=== PATIENT | female | born 1990 | race Two or more races ===

== ENCOUNTER 2024-11-07 14:49 | Outpatient (AMB) | payer MEDICAID, SELFPAY ==
[2024-11-07 15:10] VITALS: BP 120/83; PULSE 88; RESP 16; TEMP 36.2; O2SAT 98; BMI 34.4
--- NOTE | 2024-11-07 15:10 | AMB.OBINITIA ---
Vital Signs 11/07/24 15:10 Height 1.52 m Height Method Stated Weight 80.002 kg Weight Measurement Method Standing Scale BMI 34.4 BP 120/83 Blood Pressure Source Automatic Cuff Blood Pressure Location Left Upper Arm Position Sitting Respiration 16 Pulse 88 Pulse Source Monitor Temp 97.2 F Temp Source Oral Pulse Oximetry (%) 98 Oxygen Delivery Method Room Air Allergies/Home Meds Allergies & Medications Allergies No Known Allergies Allergy (Verified 11/07/24 15:11) Medication Reconciliation docusate sodium 100 mg capsule (Colace) 100 mg PO BID #60 caps 01/27/23 [Rx Confirmed 11/07/24] ibuprofen 800 mg tablet 800 mg PO Q6H PRN pain #120 tabs 01/27/23 [Rx Confirmed 11/07/24] lanolin 50 % topical ointment 1 applic topical TID PRN skin irritation #15 tubes 01/27/23 [Rx Confirmed 11/07/24] labetalol 200 mg tablet 200 mg PO BID #60 tabs 01/28/23 [Rx Confirmed 11/07/24] amoxicillin 500 mg capsule 500 mg PO TID 7 days #21 caps 11/07/24 [Rx] Intake Visit Data Collection New Patient or Established: Established Patient (seen at [facility] within 3 years) Reason for Visit:: OBC Seen by Clinical Staff ONLY (RN/MA): No Psych Therapist Required: No Do You Feel Safe at Home: Yes Authorities Contacted: N/A PCP or OBGYN visit in last 3 months: Yes Hx Now: Yes Are you currently on any form of Control: No Last menstrual period: 07/28/24 Pain Present Currently: No Pain Scale Used: Mendoza-Patel/Numerical Pain scale:: 0 Smoking Status Smoking Status: Never smoker Questionnaires Covid-19 Vaccine Questionnaire Has patient been vacinated for Covid-19 Have you been vacinated for Covid-19: No PHQ-9 PHQ-2 Over the last 2 weeks, how often have you been bothered by any of the following problems? 1. Little interest or pleasure in doing things: not at all 2. Feeling down, depressed, or hopeless: not at all Total score: 0 PHQ-9 3. Trouble falling or staying asleep, or sleeping too much: Not at all 4. Feeling tired or having little energy: Not at all 5. Poor appetite or overeating: Not at all 6. Feeling bad about yourself - or that you are a failure or have let yourself or your family down: Not at all 7. Trouble concentrating on things, such as reading the newspaper or watching television: Not at all 8. Moving or speaking so slowly that other people could have noticed? - Or the opposite - being so fidgety or restless that you have been moving around a lot more than usual: not at all 9. Thoughts that you would be better off or of hurting yourself in some way: Not at all Total score: 0 If you checked off any problems, how difficult have these problems made it for you to do your work, take care of things at home, or get along with other people?: not difficult at all Source: Developed by Drs. Armin Lam, Vibha Mora, César Whitney and colleagues, with an educational liliana from [employer]. Depression screen completed yes Social History Living Situation History Marital Status: Lives With: Family Housing: House Tobacco History Smoking Status: Never smoker Second Hand Smoke Exposure: No Alcohol History Alcohol Intake: Never Domestic Abuse History Do You Feel Safe at Home: Yes History of Present Illness HPI Narrative Tatum Botello, a 4 para 3, presents for her initial visit at 14 weeks and 4 days gestation based on her last menstrual period of July 28, 2024. Her obstetrical history is significant for preeclampsia in her first and gestational diabetes as well as hypertension in her third . All previous deliveries were vaginal. The patient reports mild nausea associated with her current . She denies any severe symptoms at this time. Tatum also mentions noticing a lump in her vaginal area approximately 4 days ago while cleaning herself. She describes it as a grub that she can feel but cannot see. The patient denies any pain, throbbing sensation, or discharge associated with this lump. This is a new finding for her and has not occurred in previous pregnancies. Regarding her last , Tatum reports that she was induced approximately 20 days early due to the baby measuring larger than expected. Her due date had been February 16, but she delivered around 37 weeks gestation. 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 Medical History: - Gestational diabetes in third - Hypertension in third - Preeclampsia in first Surgical History: - 3 previous vaginal deliveries Obstetric History: - GTPAL: L3 - Current : Gestational age 14 weeks and 4 days by last menstrual period, estimated due date May 04, 2025 - Third : Vaginal delivery, complicated by gestational diabetes and hypertension - Second : Vaginal delivery, no reported complications - First : Vaginal delivery, complicated by preeclampsia Social History: - Works night shifts [employer]: Past Medical History Past Medical History: No Hx Neurological Disorders, No Hx Breast Cancer, Yes Hx Cardiac Disorders, Yes Hx Hypertension (PIH), No Hx Cancer, No Hx Blood Disorders, Yes Hx Anemia, Yes Hx Gastrointestinal Disorders, No Hx Renal Disease, No Hx Diabetes Mellitus Type 1, No Hx Diabetes Mellitus Type 2, No Hx Tubal Ligation and No Hx Hysterectomy OB Initial Visit Menstrual History Menstrual reliability: definite Flow: normal Menstrual regularity: regular Monthly: Yes Age at menarche: 16 On control pills at conception: No OB History : 4 Para: 3 Hx # Pregnancies: 0 Hx Total # of Abortions (Spontaneous & Elective): 0 # of Living Children: 3 Delivery History 1st : Child's name: NOT PROVIDED date: 03/30/17 sex: male Delivery type: vaginal Delivery complications: PRECLAMPSIA History of depression before or after : No 2nd : Child's name: NOT PROVIDED date: 10/02/19 sex: female Delivery type: vaginal Delivery complications: GESTATIONAL DIABETES History of depression before or after : No 3rd : Child's name: NOT PROVIDED date: 02/06/23 sex: female Delivery type: vaginal Delivery complications: PRECLAMPSIA, GESTATIONAL DIABETES , HYPERTENSION Infection History & Risk Evaluation History of STDs: none HIV risk evaluation: low risk Hepatitis B risk evaluation: low risk Patient or partner has history of Genital Herpes: No Varicella/chicken pox status: immunized Genetic Screening & History Genetic Screening/Teratology Counseling - Includes patient, baby's father, or anyone in either family with: 1. Patient's age 35 years or older as of estimated date of delivery: No 2. Thalassemia (Setswana, Peruvian, Mediterranean, or Background); MCV less than 80: No 3. Neural Tube Defect (Meningomyelocele, Spina Bifida, or Anencephaly): No 4. Congenital Heart Defect: No 5. Down Syndrome: No 6. Henry-Sachs (Ashkenazi Alevism, Cajun, Omani Hong Konger): No 7. Jordyn Disease (Ashkenazi Alevism): No 8. Familial Dysautonomia (Ashkenazi Alevism): No 9. Sickle Cell Disease or Trait (): No 10. Hemophilia or other blood disorders: No 11. Muscular Dystrophy: No 12. Cystic Fibrosis: No 13. Swift's Chorea: No 14. Mental Retardation/Autism: Yes 15. Other inherited genetic or chromosomal disorder: No 16. Maternal Metabolic Disorder (EG,TYPE 1 Diabetes, PKU): No 17. Patient or baby's father had a child with defects not listed above: No 18. Recurrent loss or a stillbirth: No 19. Medications (including supplements, vitamins, herbs or otc drugs)/illicit/recreational drugs/alcohol since last menstrual period: No 20. Any other: No Infection History 1. Live with someone with TB or exposed to TB: No 2. Rash or viral illness since last menstrual period: No 3. Hepatitis B,C: No Other (see comments) Source: [employer] Exam Narrative Physical exam: - Genitourinary: Patient reports a lump in the vaginal area. Upon examination, a Bartholin's cyst is noted. General Limitations: no limitations General Appearance: alert, in no apparent distress and comfortable Head Head exam: atraumatic and normocephalic Eye Eye exam: Present normal appearance, PERRL and EOMI Neck Neck exam: Present normal inspection and full ROM Chest Chest inspection: Present normal inspection and symmetric chest wall rise; Absent tenderness Resp Respiratory exam: Present normal lung sounds bilaterally; Absent respiratory distress Card Cardiovascular exam: Present regular rate and normal rhythm Abdominal Abdominal exam: Present soft and normal bowel sounds; Absent tenderness, guarding, rebound or rigidity Neuro Neurological exam: Present alert and oriented X3 Psych Psychiatric exam: Present normal affect Office Procedures OB Clinic LOC & Office Proc's Nursing/Assessment Patient Status: Established Patient OB Clinic Nursing Assessment: Medication Reconciliation, Update PMH in EMR and Vital Signs OB Clinic Coordination of Care: Education Complex Pt/Fam, Consent,records obtained, informed consent, Lab and Imaging orders, Results/Orders obtained and Staff clarify orders Special Needs: Heart tones Established Patient Charge Established Patient Point Assignment: 115 Established Patient Point Charge: EP Level 3 (80-115) Assessment & Plan Diagnosis / Problem List (1) Supervision of high risk , unspecified, first trimester: Status: Acute (2) Uterine size date discrepancy: Status: Acute (3) Bartholin's cyst: Status: Acute Plan Intrauterine Assessment: Patient reports last menstrual period on 07/28/2024, consistent with 14 weeks 4 days gestation and estimated due date of 05/04/2025. Bedside ultrasound performed today shows measurements between 11 weeks 5 days and 13 weeks, with normal heart rate of 158 bpm. movement observed. Discrepancy in dates noted, formal ultrasound needed for accurate dating. Plan: - Order formal ultrasound in radiology department for accurate dating and measurements - Maintain estimated due date based on last menstrual period (05/04/2025) pending formal ultrasound results - Order initial OB panel and genetic testing - Order 1-hour glucose tolerance test (due to history of gestational diabetes) - Follow-up after test results are available History of gestational diabetes Assessment: Patient has a history of gestational diabetes in previous pregnancies, increasing her risk for recurrence in current . Early screening is indicated. Plan: - Order 1-hour glucose tolerance test as part of initial lab work - Educate patient on importance of early screening and management of gestational diabetes - Follow-up to review results and determine need for further testing or management History of preeclampsia and gestational hypertension Assessment: Patient has a history of preeclampsia in her first and gestational hypertension in her third , increasing her risk for recurrence in current . Close monitoring is warranted. Plan: - Include blood pressure monitoring in routine visits - Educate patient on signs and symptoms of preeclampsia to report - Consider low-dose aspirin for preeclampsia prevention (to be discussed at follow-up visit) Vaginal lump Assessment: Patient reports noticing a lump in the vaginal area 4 days ago. Denies pain, throbbing, or discharge. Physical examination pending. Plan: - Perform pelvic examination to assess reported vaginal lump - Provide patient education and reassurance based on examination findings - Determine need for further evaluation or treatment based on examination results Family planning Assessment: Patient expresses interest in permanent contraception. Discussion of tubal ligation options provided, including possibility of laparoscopic tubal ligation. Plan: - Educate patient on laparoscopic tubal ligation procedure - Discuss risks, benefits, and alternatives of tubal ligation - Plan for further discussion and decision-making at subsequent visits - If patient decides to proceed, schedule tubal ligation approximately 6 weeks after delivery Mild nausea Assessment: Patient reports mild nausea associated with . Plan: - Educate on dietary and lifestyle modifications to manage nausea - Instruct patient to call if nausea worsens - Offer prescription for Zofran if needed in the future
== END 2024-11-07 16:05 | disposition home or self-care (01) ==
LOC: HODSOBC 14:49
PROVIDERS: Supervising Provider Obstetrics & Gynecology; Visit Provider Obstetrics & Gynecology
DX: O09.891 Supervision of other high risk pregnancies, first trimester (principal); O26.841 Uterine size-date discrepancy, first trimester; O99.891 Other specified diseases and conditions complicating pregnancy; N75.0 Cyst of Bartholin's gland; R11.0 Nausea; O09.291 Supervision of pregnancy with other poor reproductive or obstetric history, first trimester; Z3A.11 11 weeks gestation of pregnancy; Z86.32 Personal history of gestational diabetes; Z87.59 Personal history of other complications of pregnancy, childbirth and the puerperium
CPT/HCPCS: 99213; G0463

== ENCOUNTER → 2024-11-12 | Outpatient (CLI) | payer MEDICAID, SELFPAY ==
--- NOTE | 2024-11-12 13:27 | XR_ITS ---
Examination: Transvaginal ultrasound of the pelvis, complete Technique: Transvaginal sonographic images pelvis performed using long scale imaging Exam date and time: November 12, 2024 1416 hours INDICATIONS: Size dates discrepancy FINDINGS: Uterus 14.5 cm CRL 6.3 cm corresponds to 12 weeks 5 day gestational age Cardiac motion 162 BPM Right ovary obscured by bowel gas Left ovary 3.2 cm arterial flow IMPRESSION: Viable intrauterine gestation 12 weeks 5 days.
--- NOTE | 2024-11-12 13:27 | XR_ITS ---
Examination: Complete OB ultrasound, less than 14 weeks, transabdominal Date and time of exam: November 12, 2024 1406 hours INDICATIONS: Size dates discrepancy Technique: Obstetrical ultrasound images less than 14 weeks performed via transabdominal imaging Findings: A normal shaped single intrauterine gestation is present in the uterus. pole 6.9 cm corresponds to 13 weeks 1 day gestational age Cardiac motion 155 BPM Ultrasonographic survey of visible and placental structures unremarkable. Amniotic fluid volume appears appropriate for this estimated gestational age. Right ovary 3.6 cm arterial flow 18 mm cyst Left ovary obscured by bowel gas IMPRESSION: Viable intrauterine gestation 13 weeks 1 day.
== END | disposition home or self-care (01) ==
PROVIDERS: Referring Provider Obstetrics & Gynecology; Visit Provider Obstetrics & Gynecology
DX: O26.849 Uterine size-date discrepancy, unspecified trimester (principal); O09.91 Supervision of high risk pregnancy, unspecified, first trimester; Z3A.13 13 weeks gestation of pregnancy
CPT/HCPCS: 76801; 76830

== ENCOUNTER 2024-11-20 19:20 | Emergency (ER) | payer MEDICAID, SELFPAY ==
[2024-11-20 19:21] VITALS: BMI 34.3
[2024-11-20 19:40] VITALS: BP 117/79; PULSE 87; RESP 18; TEMP 37; O2SAT 99
--- NOTE | 2024-11-20 19:47 | EDRME_ITS ---
Rapid Medical Screening Exam [facility] Arrival date/time: 11/20/24 19:20 34F with history of gestational HTN at approximately 16 weeks presents to ED with 2 days of LEE and LUQ pain. Chief Complaint: Headache Vital signs: Vital Signs Temperature 98.6 F 11/20/24 19:40 Pulse Rate 87 11/20/24 19:40 Respiratory Rate 18 11/20/24 19:40 Blood Pressure 117/79 11/20/24 19:40 Pulse Oximetry (%) 99 11/20/24 19:40 Oxygen Delivery Method Room Air 11/20/24 19:40
[2024-11-20 20:11] LABS: Basophils # (Auto) 0.0 Thou/mm3 (0.0-0.2); Basophils % (Auto) 0 % (0-2.5); Eosinophils # (Auto) 0.2 Thou/mm3 (0.0-0.5); Eosinophils % (Auto) 2 % (0-10); Hematocrit 36.5 % (36.0-46.0); Hemoglobin 12.2 g/dL (12.0-16.0); Immature Granulocytes Auto 0.06 Thou/mm3 (0.00-0.00); Lymphocytes # (Auto) 1.4 Thou/mm3 (1.0-4.8); Lymphocytes % (Auto) 18 % (10-50); Mean Corpuscular HGB Conc 33.4 g/dl (31.0-37.0); Mean Corpuscular Hemoglobin 28.5 pg (25.0-35.0); Mean Corpuscular Volume 85 fL (80-100); Monocytes # (Auto) 0.8 Thou/mm3 (0.0-0.8); Monocytes % (Auto) 10 % (0-12); Neutrophils # (Auto) 5.6 Thou/mm3 (1.8-7.7); Neutrophils % (Auto) 69 % (37-80); Nucleated Red Blood Cell # 0.00 Thou/mm3 (0.00-0.00); Nucleated Red Blood Cell % 0 /100 WBC (0); Platelet Count 213 Thou/mm3 (140-440); RDW Standard Deviation 39.7 fL (36.4-46.3); Red Blood Count 4.28 Miln/mm3 (4.00-5.20); White Blood Count 8.1 Thou/mm3 (3.6-11.0)
[2024-11-20] MEDS: ACETAMINOPHEN 500 MG TABLET PO (20:17)
[2024-11-20 20:26] LABS: Collection Type, Urine Clean Catch
[2024-11-20 20:33] LABS: Alanine Aminotransferase 20 U/L (10-49); Albumin, Serum 4.2 gm/dL (3.5-5.0); Albumin/Globulin Ratio 1.8 (1.2-2.2); Alkaline Phosphatase 81 U/L (46-116); Anion Gap 9 (7-16); Aspartate Amino Transferase 23 U/L (0-34); BUN/Creatinine Ratio 9 Ratio (12-20); Bilirubin,Total 0.3 mg/dL (0.3-1.2); Blood Urea Nitrogen 6 mg/dL (9-23); Calcium 9.2 mg/dL (8.3-10.6); Calcium (Corrected) 9.2 mg/dL (8.5-10.1); Carbon Dioxide 24.8 mMol/L (20.0-31.0); Chloride 105 mMol/L (98-107); Creatinine (Component) 0.7 mg/dL (0.6-1.3); Estimated Creatinine Clearance 105.9 mL/min (>60); Globulin 2.4 gm/dL (2.3-3.5); Glucose 118 mg/dL (74-106); Osmolality,Calculated 276 (275-295); Potassium 3.3 mMol/L (3.4-5.1); Sodium 139 mMol/L (136-145); Total Protein 6.6 gm/dL (5.7-8.2); eGFR > 60 See Note
[2024-11-20 20:42] LABS: Amorphous Crystals,Urine Present (Absent); Bacteria,Urine 1+; Bilirubin,Urine Negative (Negative); Blood,Urine Negative (Negative); Clarity,Urine Turbid (Clear/Hazy); Color,Urine Colorless (Lt Yel-Yel); Culture Indicated,Urine Contaminated; Glucose, Urine Negative (Negative); Ketones,Urine Negative (Negative); Leukocyte Esterase,Urine Negative (Negative); Nitrite,Urine Negative (Negative); PH,Urine 7.0 (5.0-7.0); Protein,Urine Trace (Neg - Trace); RBC,Urine 2 /hpf (0-3); Specific Gravity,Urine 1.021 (1.001-1.035); Squamous Epithelial Cell,Urine 14 /hpf (0-5); Urobilinogen,Urine Negative mg/dL (0.0-1.0); WBC,Urine 2 /hpf (0-5)
[2024-11-20 22:21] VITALS: BP 115/68; PULSE 83; RESP 19; TEMP 37.6; O2SAT 96
--- NOTE | 2024-11-20 22:28 | EDNOTE_ITS ---
ED Headache RME/HPI General Chief Complaint: Headache Stated Complaint: HEADACHE X2 DAYS, LEFT UPPER ABD PAIN, 16 WKS PREG Time Seen by Provider: 11/20/24 20:56 Arrival date/time: 11/20/24 19:20 Limitations: no limitations RME / HPI RME / HPI Narrative: 11/20/24 19:20 34F with history of gestational HTN at approximately 16 weeks presents to ED with 2 days of LEE and LUQ pain. --------- Dr. Morales's Main ED Evaluation: 34yo female with a history of gestational HTN who is ~16 weeks gestation presents to the ED for a chief complaint of a generalized headache since yesterday. Patient describes her pain as throbbing and pressure in nature, rating her pain a 6 out of 10 in severity. Patient has been taking Tylenol with mild improvement. Her headache feels similar to when s he was diagnosed with gestational HTN during her last . Patient denies any N/V, abdominal pain, vaginal bleeding, cough, runny nose, or any other associated symptoms. NKA. Related Data Previous Rx's ?Medication ?Instructions ?Recorded docusate sodium 100 mg capsule 100 mg PO BID #60 caps 01/27/23 (Colace) ibuprofen 800 mg tablet 800 mg PO Q6H PRN pain #120 tabs 01/27/23 lanolin 50 % topical ointment 1 applic topical TID PRN skin 01/27/23 irritation #15 tubes labetalol 200 mg tablet 200 mg PO BID #60 tabs 01/28 Allergies Allergy/AdvReac Type Severity Reaction Status Date / Time No Known Allergies Allergy Verified 11/07/24 15:11 Review of Systems Review of Systems Systems Reviewed: All systems reviewed, normal except as documented Past Medical History Past Medical History NEUROLOGIC: Negative Neurological Disorders CARDIAC: Positive Cardiac Disorders and Hypertension (PIH); Negative Congestive Heart Failure RESPIRATORY: Positive Asthma and Bronchitis; Negative Chronic Obstructive Pulmonary Disease (COPD) GASTROINTESTINAL: Positive Gastrointestinal Disorders and Obesity; Negative Hepatitis or Colorectal Cancer GENITOURINARY: Positive Genitourinary Disorders (hx uti); Negative Renal Disease or Prostate Cancer REPRODUCTIVE: Positive Previous Pregnancies; Negative Breast Cancer, Endometriosis, Genital Herpes, Gonorrhea, Pelvic Inflammatory Disease, Syphilis, Testicular Cancer or Uterine Prolapse MUSCULOSKELETAL: Negative Musculoskeletal Disorders, Bone Cancer or Carpal Tunnel Syndrome ENT: Negative Cataracts ENDOCRINE: Positive Endocrine Disorders; Negative Diabetes Mellitus Type 1 or Diabetes Mellitus Type 2 HEMATOLOGIC: Positive Anemia; Negative Blood Disorders PSYCHO/SOCIAL: Positive Depression, Anxiety and Depression OTHER HISTORY: Negative Hospitalization, Autoimmune Disease, Down Syndrome, Developmental Delay, Shingles, Falls, Blood Transfusions, Blood Transfusion Reaction, Anesthesia Reactions, Organ Transplant, Chemotherapy, Radiation Therapy, Hyperbaric Therapy, MRSA, VRSA, Vancomycin-Resistant Enterococci, Human Immunodeficiency Virus (HIV), Chicken Pox, Measles, Mumps, Rubella (Grenadian Measles), Pertussis, Clostridium Difficile, Cancer, Breast Cancer, Cervical Cancer, Colorectal Cancer, Lung Cancer, Ovarian Cancer, Prostate Cancer or Testicular Cancer Family History FAMILY HISTORY: Positive Family Respiratory Disorders (mother-asthma) and Family Gastrointestinal Problems (mother-gallbladder); Negative Family Psychiatric Problems, Family Cardiac Disorders, Family Cancer, Family Surgery or Family Anesthesia Reaction Surgical History SURGICAL: Negative Endocrine Surgery, Thyroidectomy, Ear Surgery, Tympanostomy Tube, Eye Surgery, Nose Surgery, Oral Surgery, Tonsillectomy, Adenoidectomy, Cochlear Implant, Corneal Transplant, Throat Surgery, Abdominal Surgery, Tracheostomy, Gastric Bypass Surgery, Gastrostomy, Bowel Surgery, Nephrectomy, Transurethral Resection, Joint Replacement, Amputation, Open Reduction Internal Fixation, Arthroscopy, Neurologic Surgery, Brain Shunt, Mastectomy, Lumpectomy, Hysterectomy, Tubal Ligation, Section, Vasectomy or Organ Transplant Social History SMOKING STATUS: Never smoker SECOND HAND EXPOSURE: No ED Exam General Limitations: Present no limitations General appearance: Present alert and in no apparent distress Head Head exam: Present atraumatic Eye Eye exam: Present normal appearance, PERRL and EOMI ENT ENT exam: Present normal exam, normal oropharynx and mucous membranes moist Neck Neck exam: Present normal inspection, full ROM and trachea midline Chest Chest inspection: Present normal inspection and symmetric chest wall rise Respiratory Respiratory exam: Present normal lung sounds bilaterally Cardiovascular Cardiovascular exam: Present regular rate, normal rhythm and normal heart sounds Abdominal Exam Abdominal exam: Present soft and normal bowel sounds Extremities Exam Extremities exam: Present normal inspection and full ROM Back Exam Back exam: Present normal inspection and full ROM Neurological Exam Neurological exam: Present alert, oriented X3 and CN II-XII intact Psychiatric Psychiatric exam: Present normal affect and normal mood Skin Skin exam: Present warm, dry, intact and normal color Course Quality Measures none Orders Category Date Time Status Bedside COVID-19 Antigen Test NOW Care 11/20/24 19:46 Active heart tone auscultation Q4H Care 11/20/24 22:23 Active Insert IV NOW Care 11/20/24 21:05 Active Miscellaneous Nursing Order NOW Care 11/20/24 21:[address] head/brain wo con Stat Exams 11/21/24 00:04 Taken CBC Stat Lab 11/20/24 20:03 Completed CMP [Comprehensive Metabolic Panel] Stat Lab 11/20/24 20:03 Completed Urinalysis, C/S if Indicated Stat Lab 11/20/24 20:20 Completed Acetaminophen Tab [Tylenol ES Tab] Med 11/20/24 19:46 Discontinued 500 mg PO X1 ONE Potassium Chloride [K-Dur] Med 11/20/24 22:29 Discontinued 40 meq PO X1 ONE Sodium Chloride 0.9% 1000 ml [Ns] 1,000 ml Med 11/20/24 20:57 Discontinued IV 999 mls/hr Sodium Chloride 0.9% 1000 ml [Ns] 1,000 ml Med 11/20/24 22:29 Discontinued IV 999 mls/hr Reevaluation(s) Reevaluation #1: Patient feels significantly better compared to when she initially came in. Patient is stable to be discharged home. Time: 02:50 Vital Signs Vital signs: Vital Signs Temperature 98.6 F 11/20/24 19:40 Pulse Rate 87 11/20/24 19:40 Respiratory Rate 18 11/20/24 19:40 Blood Pressure 117/79 11/20/24 19:40 Pulse Oximetry (%) 99 11/20/24 19:40 Oxygen Delivery Method Room Air 11/20/24 19:40 Headache MDM Narrative MDM Narrative:: Scribe Attestation: 11/20/24 Crystal Reynolds am scribing for and in the presence of Dr. Morales. Patient data External records reviewed:: [facility] previous records (Per chart review, patient was admitted here on 03/29/22 for pre-eclampsia, complicating childbirth.) Clinical information provided by:: patient Social determinants that could affect healthcare access:: none Patient has the following chronic illnesses:: gestational HTN How is presenting disease/condition affected by chronic disease/condition?: caused by Evaluation data The following diagnostics were reviewed and interpreted by me:: lab results Lab and/or radiology exams considered but not ordered:: none Interpretation Summary: CBC normal, K 3.3, UA contaminated. COVID negative. --------- [facility] Preliminary Report Draft Patient: ARON HENDRICKS Record#: [id number] Birthdate: 1990 Age/Sex: 34 / F Location: [facility] Attending Dr: Ordering Physician: Date of Service: Procedure(s): Accession Number(s): cc: ~ CT scan of the head without intravenous contrast (axial sections with sagittal and coronal reformats). November 21, 2024 0052 hours Clinical History: 34-year-old female with headache. Comparison: No prior study is available for comparison. Findings: There is no evidence of intracranial hemorrhage, mass effect or midline shift. The ventricles and CSF spaces are unremarkable. The calvarium is unremarkable. The mastoid air cells and the visualized paranasal sinuses are clear. Impression: No evidence of intracranial hemorrhage, mass effect or midline shift. Report Electronically Signed By: Kevan Muñoz 11/21/2024 1:32:21 AM [EST] Medications / Prescriptions Medications or Prescriptions considered but not ordered:: none Medication administrations:: Medication Administration History Discontinued Medications Acetaminophen (Acetaminophen 500 Mg Tablet) 500 mg PO X1 ONE Stop: 11/20/24 19:47 Last Admin: 11/20/24 20:17 Dose: 500 mg Documented By: LIV Sodium Chloride (Ns) 1,000 mls @ 999 mls/hr IV .Q1H1M ONE Stop: 11/20/24 21:57 Last Admin: 11/21/24 02:20 Dose: Not Given Documented By: BUSHRA Non-Admin Reason: Cancelled by Provider Sodium Chloride (Ns) 1,000 mls @ 999 mls/hr IV .Q1H1M ONE Stop: 11/20/24 23:29 Last Admin: 11/21/24 00:16 Dose: 999 mls/hr Documented By: BUSHRA Potassium Chloride (Potassium Chloride 20 Meq Tabcr) 40 meq PO X1 ONE Stop: 11/20/24 22:30 Last Admin: 11/21/24 00:16 Dose: 40 meq Documented By: BUSHRA see above Consultations Consultation(s) initiated? (list below): No Diagnosis Differential diagnosis headache: migraine, tension headache and other (hypertensive urgency, hypertensive emergency) Most likely diagnosis given after review of the tests above:: see clinical impression below Admission Indicated Admission indicated?: not indicated Admission Request Was there a request for admission?: No Disposition Plan Disposition Plan: Discharge Discharge Attestation Discharge Attestation: The patient and all family members were given an opportunity to ask questions and understood the discharge instructions. Discharge instructions specifically effects, indications for sooner follow up or return to the emergency department, and the expected course of current diagnosis. Patient condition: Stable Discharge Plan Plan Patient Disposition: HOME (Self Care) Patient condition on transfer: Stable Prescriptions/Referrals Prescriptions/Med Rec: No Action ibuprofen 800 mg tablet 800 mg PO Q6H MDD 4 PRN (Reason: pain) Qty: 120 0RF docusate sodium [Colace] 100 mg capsule 100 mg PO BID Qty: 60 0RF lanolin 50 % ointment 1 applic topical TID PRN (Reason: skin irritation) Qty: 15 0RF labetalol 200 mg tablet 200 mg PO BID Qty: 60 0RF Referrals: Fredrick Wadsworth MD [Physician, HARP REGULATOR] - 11/25/24 No Primary/Family,Physician [Primary Care Provider] - In 1 week Problem List Clinical Impression: Headache, Asymptomatic bacteriuria Patient/Caregiver Discharge Instructions Education Materials: Self-Care for Headaches Additional Instructions: Stay hydrated with Pedialyte and a Gatorade. Today your urine shows that you are slightly dehydrated. He also have some bacteria in your urine however you have opted to wait to follow-up with your primary care in 48 hours to get the results of the urine culture and like it treated. Return to Emergency Department sooner from your appointment or follow-up with your HARP REGULATOR and/or primary care if you have fever, or vomiting, increase in headache or symptoms, you have any swelling of your legs, vision changes, or any other concerns. Print Language: Albanian Stand Alone Forms: Catherine Award Info., Patient Portal Info Letter
[2024-11-20 23:53] VITALS: BP 124/81; PULSE 80; RESP 18; TEMP 37.1; O2SAT 99
--- NOTE | 2024-11-21 00:04 | XR_ITS ---
Examination: CT brain head without contrast. 2-D sagittal coronal reconstructions Date and time of exam:November 21, 2024, 0052 hrs. Indications: Headaches beginning 2 days ago CTDI: vol (mGy):54.5 DLP: (mGycm):1042 Technique: Multiple CT axial sections of the brain have been obtained, 5 mm slice thickness. Contrast has not been administered. 2-D sagittal, coronal reconstructions have been obtained Low dose protocols were performed. One or more of the following dose reduction techniques were used; automated exposure control, adjustment of the mA and/or KV according to patient size, use of iterative reconstruction technique. Findings: No significant ventricular enlargement. Intra-axial or extra-axial hemorrhage density is not seen. No mass effect or midline shift Basal cisterns are not remarkable. Fourth ventricle is midline. Cranial vault intact. Impression: Negative for acute hemorrhage, mass effect or midline shift Chronic ethmoid and left sphenoid sinusitis
[2024-11-21] MEDS: SODIUM CHLORIDE 0.9% 1000 ML 1,000 ML 999 ML IV (00:16)
--- NOTE | 2024-11-21 01:32 | PRELIM_ITS ---
CT scan of the head without intravenous contrast (axial sections with sagittal and coronal reformats). November 21, 2024 0052 hours Clinical History: 34-year-old female with headache. Comparison: No prior study is available for comparison. Findings: There is no evidence of intracranial hemorrhage, mass effect or midline shift. The ventricles and CSF spaces are unremarkable. The calvarium is unremarkable. The mastoid air cells and the visualized paranasal sinuses are clear. Impression: No evidence of intracranial hemorrhage, mass effect or midline shift. Report Electronically Signed By: Kevan Muñoz 11/21/2024 1:32:21 AM [EST]
[2024-11-21 01:58] VITALS: BP 115/61; PULSE 82; RESP 18; TEMP 36.9; O2SAT 98
[2024-11-21 03:04] VITALS: BP 136/72; PULSE 80; RESP 16; TEMP 36.7; O2SAT 98
== END 2024-11-21 03:07 | disposition home or self-care (01) ==
PROVIDERS: Physician Assistant; Emergency Provider Emergency Medicine
DX: O99.891 Other specified diseases and conditions complicating pregnancy (principal); R51.9 Headache, unspecified; R82.71 Bacteriuria; Z3A.16 16 weeks gestation of pregnancy; Z87.59 Personal history of other complications of pregnancy, childbirth and the puerperium
CPT/HCPCS: 36415; 70450; 80053; 81001; 85025; 87811; 99284; J7030; A9270

== ENCOUNTER 2024-12-06 09:26 | Outpatient (AMB) | payer MEDICAID, SELFPAY ==
[2024-12-06 10:00] VITALS: BP 115/76; PULSE 88; RESP 18; TEMP 36.2; O2SAT 98; BMI 34.8
--- NOTE | 2024-12-06 10:00 | AMB.OBVISIT ---
Vital Signs 12/06/24 10:00 Height 1.52 m Height Method Stated Weight 80.91 kg Weight Measurement Method Standing Scale BMI 34.8 BP 115/76 Blood Pressure Source Automatic Cuff Blood Pressure Location Left Upper Arm Position Sitting Respiration 18 Pulse 88 Pulse Source Monitor Temp 97.2 F Temp Source Oral Pulse Oximetry (%) 98 Oxygen Delivery Method Room Air Allergies/Home Meds Allergies & Medications Allergies No Known Allergies Allergy (Verified 12/06/24 10:01) Medication Reconciliation docusate sodium 100 mg capsule (Colace) 100 mg PO BID #60 caps 01/27/23 [Rx Confirmed 12/06/24] ibuprofen 800 mg tablet 800 mg PO Q6H PRN pain #120 tabs 01/27/23 [Rx Confirmed 12/06/24] lanolin 50 % topical ointment 1 applic topical TID PRN skin irritation #15 tubes 01/27/23 [Rx Confirmed 12/06/24] labetalol 200 mg tablet 200 mg PO BID #60 tabs 01/28/23 [Rx Confirmed 12/06/24] amoxicillin 500 mg capsule 500 mg PO TID 7 days #21 caps 12/06/24 [Rx] Intake Visit Data Collection New Patient or Established: Established Patient (seen at [facility] within 3 years) Reason for Visit:: OBC Seen by Clinical Staff ONLY (RN/MA): No Electron Beam 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 1. Little interest or pleasure in doing things: not at all 2. Feeling down, depressed, or hopeless: not at all Total score: 0 PHQ-9 3. Trouble falling or staying asleep, or sleeping too much: Not at all 4. Feeling tired or having little energy: Not at all 5. Poor appetite or overeating: Not at all 6. Feeling bad about yourself - or that you are a failure or have let yourself or your family down: Not at all 7. Trouble concentrating on things, such as reading the newspaper or watching television: Not at all 8. Moving or speaking so slowly that other people could have noticed? - Or the opposite - being so fidgety or restless that you have been moving around a lot more than usual: not at all 9. Thoughts that you would be better off or of hurting yourself in some way: Not at all Total score: 0 If you checked off any problems, how difficult have these problems made it for you to do your work, take care of things at home, or get along with other people?: not difficult at all Source: Developed by Drs. Armin Lam, Vibha Mora, César Whitney and colleagues, with an educational liliana from [employer] 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: Past Medical History Past Medical History: No Hx Neurological Disorders, No Hx Breast Cancer, Yes Hx Cardiac Disorders, Yes Hx Hypertension (PIH), No Hx Cancer, No Hx Blood Disorders, Yes Hx Anemia, Yes Hx Gastrointestinal Disorders, No Hx Renal Disease, No Hx Diabetes Mellitus Type 1, No Hx Diabetes Mellitus Type 2, No Hx Tubal Ligation and No Hx Hysterectomy Care OB Visit Log OB Flowsheet Initial Weight: Not Recorded Date <del>?</del> EGA Weight BP Alb Glu CTX Pres Fundal ht FHR Mov Dilation Station Effacement Hx Notes Visit Note 12/06/24 <del>?</del> 16w 4d 80.91 kg 115/76 occasional cephalic 145 active - She reports persistent headaches that do not resolve. - Headaches are present upon waking up in the morning - She describes them as not going away - She recently visited the emergency room for her headaches. - Hospital staff performed a CT scan and told her that her potassium was low - She was given fluids for dehydration - She has not yet provided results from this hospital visit - She denies feeling adequately rested despite sleeping. - Early glucose tolerance test at 20 weeks (order provided, patient instructed to wait 4 weeks before testing) - For headaches: Trial of Tylenol with caffeine ([id number] Tylenol tension headache formulation) - If headaches persist after one week of treatment, consider work leave for rest - Verify CT scan results and blood work from recent ER visit - Dietary recommendations: drink plain water, eat whole fruits (citrus, banana) for potassium, avoid electrolyte drinks high in sodium - Follow up in 4 weeks DARIO Calculator Estimated Delivery Date Method Current WG Current Estimate 05/19/25 Ultrasound #1 16w 5d Other Estimates 05/04/25 LMP (Uncertain) 18w 6d Notes Visit Date: 12/06/24 Last Updated by: Fredrick Wadsworth MD - Ultrasound (11/12): Gestational age 13 weeks 1 day, 2-week discrepancy with LMP dating, redated to 16 weeks 4 days, gender male - Initial panel: - Hepatitis B: negative - Hepatitis C: negative - RPR: non-reactive - Rubella: immune - Blood group: O-positive - Antibody screen: negative - HIV: negative - Gonorrhea and chlamydia: negative - Hemoglobin: 12.6 g/dL - Hematocrit: 39.2% - Urinalysis: glucose and ketones present - NIPT: negative for trisomies - Extended carrier screening: negative Problem List - Headache - Hypokalemia - Gestational diabetes mellitus - Preeclampsia - Gestational hypertension Office Procedures OBC Clinic LOC & Office Proc's Nursing/Assessment Patient Status: Established Patient OB Clinic Nursing Assessment: Medication Reconciliation, Update PMH in EMR and Vital Signs OB Clinic Coordination of Care: Consent,records obtained, informed consent, Education Simp Pt/Fam, Lab and Imaging orders, Results/Orders obtained and Staff clarify orders Special Needs: Heart tones Established Patient Charge Established Patient Point Assignment: 110 Established Patient Point Charge: EP Level 3 (80-115) Assessment & Plan Diagnosis / Problem List (1) Supervision of high risk , unspecified, first trimester: Status: Acute (2) Sinusitis: Status: Acute (3) Hypokalemia: Status: Acute Plan Problem List - Headache - Hypokalemia - Gestational diabetes mellitus - Preeclampsia - Gestational hypertension Assessment 18-week 5-day patient () with persistent headaches requiring evaluation, given history of preeclampsia and gestational hypertension in prior . Recent emergency department visit revealed low potassium and dehydration, with concerning CT scan performed during exposing fetus to radiation. Patient has history of gestational diabetes mellitus in previous requiring early glucose screening. Current shows male fetus with negative NIPT for trisomies, normal initial laboratory panel including negative infectious disease screening, and ultrasound dating discrepancy requiring due date adjustment to May 19. Plan - Early glucose tolerance test at 20 weeks (order provided, patient instructed to wait 4 weeks before testing) - For headaches: Trial of Tylenol with caffeine ([id number] Tylenol tension headache formulation) - If headaches persist after one week of treatment, consider work leave for rest - Verify CT scan results and blood work from recent ER visit - Dietary recommendations: drink plain water, eat whole fruits (citrus, banana) for potassium, avoid electrolyte drinks high in sodium - Follow up in 4 weeks
== END 2024-12-06 10:27 | disposition home or self-care (01) ==
LOC: HODSOBC 09:26
PROVIDERS: Supervising Provider Obstetrics & Gynecology; Visit Provider Obstetrics & Gynecology
DX: O09.892 Supervision of other high risk pregnancies, second trimester (principal); O99.512 Diseases of the respiratory system complicating pregnancy, second trimester; J01.90 Acute sinusitis, unspecified; O99.282 Endocrine, nutritional and metabolic diseases complicating pregnancy, second trimester; E87.6 Hypokalemia; Z3A.18 18 weeks gestation of pregnancy; O10.912 Unspecified pre-existing hypertension complicating pregnancy, second trimester; Z87.59 Personal history of other complications of pregnancy, childbirth and the puerperium; Z86.32 Personal history of gestational diabetes; Z79.899 Other long term (current) drug therapy
CPT/HCPCS: 99213; G0463

== ENCOUNTER 2025-01-07 08:29 | Outpatient (AMB) | payer MEDICAID, SELFPAY ==
[2025-01-07 08:31] VITALS: BP 108/72; PULSE 82; RESP 16; TEMP 36.3; O2SAT 98; BMI 35.7
--- NOTE | 2025-01-07 08:31 | OBCLNT_ITS ---
Vital Signs 01/07/25 08:31 Height 1.52 m Height Method Stated Weight 82.667 kg Weight Measurement Method Standing Scale BMI 35.7 BP 108/72 Blood Pressure Source Automatic Cuff Blood Pressure Location Left Upper Arm Position Sitting Respiration 16 Pulse 82 Pulse Source Monitor Temp 97.4 F Temp Source Oral Pulse Oximetry (%) 98 Oxygen Delivery Method Room Air Allergies/Home Meds Allergies & Medications Allergies No Known Allergies Allergy (Verified 01/07/25 08:38) Medication Reconciliation labetalol 200 mg tablet 200 mg PO BID #60 tabs 01/28/23 [Rx Confirmed 01/07/25] Immunizations Immunizations Flu Vaccine in the Last 12 Months: No Flu Vaccine Exclusion Criteria: Refused by Patient Care OB Visit Log OB Flowsheet Initial Weight: Not Recorded Date -?-?-?-?-?-?-?-?-?-?-?-?- EGA Weight BP Alb Glu CTX Pres Fundal ht FHR Mov Dilation Station Effacement Hx Notes Visit Note 12/06/24 -?-?-?-?-?-?-?-?-?-?-?-?- 16w 4d 80.91 kg 115/76 occasional cephalic 145 active - She reports persistent headaches that do not resolve. - Headaches are present upon waking up in the morning - She describes them as not going away - She recently visited the [facility] for her headaches. - Hospital staff performed a CT scan a nd told her that her potassium was low - She was given fluids for dehydration - She has not yet provided results [facility] - She denies feeling adequately rested despite sleeping. - Early glucose tolerance test at 20 weeks (order provided, patient instructed to wait 4 weeks before testing) - For headaches: Trial of Tylenol with c affeine ([id number] Tylenol tension headache formulation) - If headaches persist after one week of treatment, consider work leave for rest - Verify CT scan results and blood work from recent ER visit - Dietary recommendations: drink plain w ater, eat whole fruits (citrus, banana) for potassium, avoid electrolyte drinks high in sodium - Follow up in 4 weeks 01/07/25 -?-?-?-?-?-?-?-?-?-?-?-?- 21w 1d 82.667 kg 108/72 - She reports general fatigue during . - Patient is beginning to feel mov ement, describing it as a little bit and noting this is just the beginning. - She reports hand swelling, which she n otes is starting to occur. - Regarding medication adherence: - Takes vitamins sometimes - Has not been prescribed aspirin prev iously - Patient has a history of preeclampsia in a previous . - She works night shifts, having just go tten off work at 6:30 AM. - Has an upcoming ultrasound appointment scheduled for January in [place] ([facility]). - Start low-dose aspirin to prevent preeclampsia (prescription to be sent today) - Obtain A1C now (can be done without fa sting) - Repeat one-hour glucose tolerance test in approximately one month at 24-25 weeks gestation - Continue vitamins - Attend scheduled [place] ultrasound in January - Run preeclampsia panel at 28 weeks ges tation - Follow up in 4 weeks DARIO Calculator Estimated Delivery Date Method Current WG Current Estimate 05/19/25 Ultrasound #1 21w 1d Other Estimates 05/04/25 LMP (Uncertain) 23w 2d Notes Visit Date: 12/06/24 Last Updated by: Fredrick Wadsworth MD - Ultrasound (11/12): Gestational age 13 weeks 1 day, 2-week discrepancy with LMP dating, redated to 16 weeks 4 days, gender male - Initial panel: - Hepatitis B: negative - Hepatitis C: negative - RPR: non-reactive - Rubella: immune - Blood group: O-positive - Antibody screen: negative - HIV: negative - Gonorrhea and chlamydia: negative - Hemoglobin: 12.6 g/dL - Hematocrit: 39.2% - Urinalysis: glucose and ketones present - NIPT: negative for trisomies - Extended carrier screening: negative Problem List - Headache - Hypokalemia - Gestational diabetes mellitus - Preeclampsia - Gestational hypertension Office Procedures OBC Clinic LOC & Office Proc's Nursing/Assessment Patient Status: Established Patient OB Clinic Nursing Assessment: Medication Reconciliation, Update PMH in EMR and Vital Signs OB Clinic Coordination of Care: Complex Care and Chronic Disease 1-5, Co nsent,records obtained, informed consent, Education Simp Pt/Fam, 1 Ins Authorization, Lab and Imaging orders, Results/Orders obtained and Staff clarify orders Special Needs: Heart tones Established Patient Charge Established Patient Point Assignment: 150 Established Patient Point Charge: EP Level 4 (120-155) Assessment & Plan Diagnosis / Problem List (1) Uterine size date discrepancy: Status: Acute (2) Hx of preeclampsia, prior , currently : Status: Acute Plan Problem List - Gestational diabetes mellitus - History of preeclampsia Assessment Patient is experiencing gestational diabetes screening challenges, having been unable to keep down the one-hour glucose tolerance test. Current shows normal development with heart rate of 140 bpm and visible movement beginning to be perceived by the patient. Patient reports fatigue and early hand swelling, though the latter is considered too early in gestation to be concerning for preeclampsia-related symptoms. Patient has a history of preeclampsia in previous . vitamin compliance is inconsistent. Plan - Start low-dose aspirin to prevent preeclampsia (prescription to be sent today) - Obtain A1C now (can be done without fasting) - Repeat one-hour glucose tolerance test in approximately one month at 24-25 we eks gestation - Continue vitamins - Attend scheduled [place] ultrasound in January - Run preeclampsia panel at 28 weeks gestation - Follow up in 4 weeks 1. Progress Reviewed gestational age, growth, and heart rate (140 bpm, normal). Patient reports beginning to feel movements. Planned frequent visits (every 2 weeks until 36 weeks, then weekly). 2. Instructed patient to monitor movements and report decreases immediately. 3. Testing Counseled on routine third-trimester labs per guidelines. A1C ordered for now due to inability to complete one-hour glucose test, with one-hour glucose test rescheduled for 24-25 weeks. Discussed potential need for ultrasound or monitoring based on risk factors. [place] ultrasound scheduled for January. 4. Preeclampsia Precaution Educated on preeclampsia signs: severe headache, vision changes, right upper quadrant pain, sudden swelling. Low-dose aspirin prescribed for preeclampsia prevention due to previous history. Advised urgent reporting of symptoms and discussed blood pressure monitoring if high risk. Preeclampsia panel planned at 28 weeks. 5. Labor Precautions Reviewed labor signs: regular contractions, pelvic pressure, back pain, bleeding, or fluid leakage. Instructed to seek immediate care for these symptoms. 6. Lifestyle and Delivery Preparation Reinforced vitamins (patient taking sometimes), nutrition, and safe activity. Patient advised to maintain muscle movement to help with swelling. Discussed plan, pain management, and . Advised on labor preparation (e.g., hospital bag) and expectations. 7. Psychosocial Support Assessed emotional well-being (patient reports fatigue) and offered resources for mental health or parenting support.
== END 2025-01-07 09:10 | disposition home or self-care (01) ==
LOC: HODSOBC 08:29
PROVIDERS: Supervising Provider Obstetrics & Gynecology; Visit Provider Obstetrics & Gynecology
DX: O09.892 Supervision of other high risk pregnancies, second trimester (principal); O26.842 Uterine size-date discrepancy, second trimester; O09.292 Supervision of pregnancy with other poor reproductive or obstetric history, second trimester; O99.891 Other specified diseases and conditions complicating pregnancy; R22.30 Localized swelling, mass and lump, unspecified upper limb; Z3A.21 21 weeks gestation of pregnancy; Z87.59 Personal history of other complications of pregnancy, childbirth and the puerperium; Z28.21 Immunization not carried out because of patient refusal
CPT/HCPCS: 99214; G0463

== ENCOUNTER 2025-02-05 08:45 | Outpatient (AMB) | payer MEDICAID, SELFPAY ==
--- NOTE | 2025-02-05 08:55 | OBCLNT_ITS ---
Vital Signs 02/05/25 08:56 Height 1.52 m Height Method Stated Weight 83.631 kg Weight Measurement Method Standing Scale BMI 36.1 BP 113/74 Blood Pressure Source Automatic Cuff Blood Pressure Location Left Upper Arm Position Sitting Respiration 18 Pulse 80 Pulse Source Monitor Temp 98.2 F Temp Source Oral Pulse Oximetry (%) 98 Oxygen Delivery Method Room Air Allergies/Home Meds Allergies & Medications Allergies No Known Allergies Allergy (Verified 02/05/25 08:58) Medication Reconciliation aspirin 81 mg tablet 162 mg (2 x 81 mg) PO QDAY 90 days #180 tabs 02/05/25 [Rx] Immunizations Immunizations Flu Vaccine in the Last 12 Months: No Flu Vaccine Exclusion Criteria: Refused by Patient Care OB Visit Log OB Flowsheet Initial Weight: Not Recorded Date -?-?-?-?-?-?-?-?-?-?-?-?- EGA Weight BP Alb Glu CTX Pres Fundal ht FHR Mov Dilation Station Effacement Hx Notes Visit Note 12/06/24 -?-?-?-?-?-?-?-?-?-?-?-?- 16w 4d 80.91 kg 115/76 occasional cephalic 145 active - She reports persistent headaches that do not resolve. - Headaches are present upon waking up in the morning - She describes them as not going away - She recently visited the emergency [facility] for her headaches. - Hospital staff performed a CT scan a nd told her that her potassium was low - She was given fluids for dehydration - She has not yet provided results [facility] this hospital visit - She denies feeling adequately rested despite sleeping. - Early glucose tolerance test at 20 weeks (order provided, patient instructed to wait 4 weeks before testing) - For headaches: Trial of Tylenol with c affeine ([id number] Tylenol tension headache formulation) - If headaches persist after one week of treatment, consider work leave for rest - Verify CT scan results and blood work from recent ER visit - Dietary recommendations: drink plain w ater, eat whole fruits (citrus, banana) for potassium, avoid electrolyte drinks high in sodium - Follow up in 4 weeks 01/07/25 -?-?-?-?-?-?-?-?-?-?-?-?- 21w 1d 82.667 kg 108/72 - She reports general fatigue during . - Patient is beginning to feel mov ement, describing it as a little bit and noting this is just the beginning. - She reports hand swelling, which she n otes is starting to occur. - Regarding medication adherence: - Takes vitamins sometimes - Has not been prescribed aspirin prev iously - Patient has a history of preeclampsia in a previous . - She works night shifts, having just go tten off work at 6:30 AM. - Has an upcoming ultrasound appointment scheduled for January in [place] ([facility]). - Start low-dose aspirin to prevent preeclampsia (prescription to be sent today) - Obtain A1C now (can be done without fa sting) - Repeat one-hour glucose tolerance test in approximately one month at 24-25 weeks gestation - Continue vitamins - Attend scheduled [place] ultrasound in January - Run preeclampsia panel at 28 weeks ges tation - Follow up in 4 weeks 02/05/25 -?-?-?-?-?-?-?-?-?-?-?-?- 25w 2d 83.631 kg 113/74 absent 138 activ e - She reports feeling sick recently, consistent with illness going around the community. - Patient experiences pelvic pain descri bed as soreness in the pelvic area, located internally. - Attributes pain possibly to walking. - Baby remains active. - She denies headaches or symptoms of pr eeclampsia. - She denies significant coughing despit e recent illness. - Patient had uric acid lab drawn this m orning with reported result of 5.9. - Currently not taking blood pressure me dication, though labetalol appears in her chart from previous . - Start labetalol 200 mg (2 tablets together) for blood pressure management - Complete comprehensive laboratory pane l includin-hour glucose test, CBC, LDH, uric acid, A1C, CMP, and 24-hour urine collection at [facility] - Attend scheduled [facility] ultrasound tomorr ow - Follow up in 4 weeks - Provider will call if any laboratory r esults are abnormal DARIO Calculator Estimated Delivery Date Method Current WG Current Estimate 05/19/25 Ultrasound #1 27w 1d Other Estimates 05/04/25 LMP (Uncertain) 29w 2d Notes Visit Date: 12/06/24 Last Updated by: Fredrick Wadsworth MD - Ultrasound (11/12): Gestational age 13 weeks 1 day, 2-week discrepancy with LMP dating, redated to 16 weeks 4 days, gender male - Initial panel: - Hepatitis B: negative - Hepatitis C: negative - RPR: non-reactive - Rubella: immune - Blood group: O-positive - Antibody screen: negative - HIV: negative - Gonorrhea and chlamydia: negative - Hemoglobin: 12.6 g/dL - Hematocrit: 39.2% - Urinalysis: glucose and ketones present - NIPT: negative for trisomies - Extended carrier screening: negative Problem List - Headache - Hypokalemia - Gestational diabetes mellitus - Preeclampsia - Gestational hypertension Office Procedures [facility] Clinic LOC & Office Proc's Nursing/Assessment Patient Status: Established Patient OB Clinic Nursing Assessment: Medication Reconciliation, Update PMH in EMR and Vital Signs OB Clinic Coordination of Care: Consent,records obtained, informed consent, Education Simp Pt/Fam, Lab and Imaging orders, Results/Orders obtained and Staff clarify orders Special Needs: Heart tones Established Patient Charge Established Patient Point Assignment: 110 Established Patient Point Charge: EP Level 3 (80-115) Assessment & Plan Diagnosis / Problem List (1) Supervision of high risk , unspecified, second trimester: Status: Acute (2) Hx of preeclampsia, prior , currently : Status: Acute (3) Uterine size date discrepancy: Status: Acute Plan Problem List - Hypertension in - Pelvic pain Assessment Patient presents with pelvic pain described as internal soreness, possibly related to walking. Uric acid level obtained today was 5.9 mg/dL. Patient denies headaches or other symptoms of preeclampsia. Baby remains active with normal heart rate of 137-138 bpm. Patient reports recent illness but denies significant cough. Blood pressure management appears to be a consideration with labetalol 160 mg being prescribed. Plan - Start labetalol 200 mg (2 tablets together) for blood pressure management - Complete comprehensive laboratory panel includin-hour glucose test, CBC, LDH, uric acid, A1C, CMP, and 24-hour urine collection at [facility] - Attend scheduled [facility] ultrasound tomorrow - Follow up in 4 weeks - Provider will call if any laboratory results are abnormal 1. Progress Reviewed gestational age, growth, and heart rate. heart rate was 137-138 bpm, which is normal. Patient reports baby is active. Planned frequent visits (every 2 weeks until 36 weeks, then weekly) with next visit scheduled in 4 weeks. 2. Instructed patient to monitor movements and report decreases immediately. 3. Testing Counseled on routine third-trimester labs per guidelines. Ordered comprehensive preeclampsia panel including 2-hour glucose, CBC, LDH, uric acid, A1C, CMP, and 24-hour urine. Patient has MFM ultrasound scheduled for tomorrow. 4. Preeclampsia Precaution Educated on preeclampsia signs: severe headache, vision changes, right upper quadrant pain, sudden swelling. Patient denies current headaches. Uric acid level reported as 5.9. Prescribed labetalol 160mg (2 tablets) for blood pressure management. Advised urgent reporting of symptoms and discussed blood pressure monitoring if high risk. 5. Labor Precautions Reviewed labor signs: regular contractions, pelvic pressure, back pain, bleeding, or fluid leakage. Patient reports pelvic pain/soreness, possibly related to walking. Instructed to seek immediate care for these symptoms. 6. Lifestyle and Delivery Preparation Reinforced vitamins, nutrition, and safe activity. Discussed plan, pain management, and . Advised on labor preparation (e.g., hospital bag) and expectations. 7. Psychosocial Support Assessed emotional well-being and offered resources for mental health or parenting support.
[2025-02-05 08:56] VITALS: BP 113/74; PULSE 80; RESP 18; TEMP 36.8; O2SAT 98; BMI 36.1
== END 2025-02-05 09:17 | disposition home or self-care (01) ==
LOC: HODSOBC 08:45
PROVIDERS: Supervising Provider Obstetrics & Gynecology; Visit Provider Obstetrics & Gynecology
DX: O09.292 Supervision of pregnancy with other poor reproductive or obstetric history, second trimester (principal); O09.892 Supervision of other high risk pregnancies, second trimester; O26.842 Uterine size-date discrepancy, second trimester; O13.2 Gestational [pregnancy-induced] hypertension without significant proteinuria, second trimester; Z3A.25 25 weeks gestation of pregnancy; Z87.59 Personal history of other complications of pregnancy, childbirth and the puerperium
CPT/HCPCS: 99213; G0463

== ENCOUNTER → 2025-02-05 | Outpatient (CLI) | payer MEDICAID, SELFPAY ==
[2025-02-05 05:30] LABS: Glucose Estimated Average 123 mg/dL (80-131); Hemoglobin A1C 5.9 % Hgb (4.8-6.0)
== END | disposition home or self-care (01) ==
PROVIDERS: Referring Provider Obstetrics & Gynecology; Visit Provider Obstetrics & Gynecology
DX: Z13.1 Encounter for screening for diabetes mellitus (principal)
CPT/HCPCS: 36415; 83036